=== PATIENT | male | born 1940 | race Caucasian/White ===

== ENCOUNTER 2017-03-04 10:51 | Emergency (ER) | payer MEDICARE, OTHER ==
[~2017-03-04] VITALS: Ht 165.1 cm; Wt 68.2 kg
[~2017-03-04 10:51] MED LIST: ATOR40TA28 PO; CARV12 PO; LISI40TA4 PO
[2017-03-04] MEDS ORDERED: ASPI81 PO (11:10)
[2017-03-04] MEDS ORDERED: NITR2.5 PO (11:10)
[2017-03-04] MEDS ORDERED: FURO40 PO (11:10)
[2017-03-04] MEDS ORDERED: ATOR20TA86 PO (11:10)
[2017-03-04] MEDS ORDERED: METF500T4 PO (11:10)
[2017-03-04] MEDS ORDERED: LORazepam 1 MG TABLET PO ONE (12:00)
[2017-03-04] MEDS ORDERED: PERTUSS(ACELL),DIPH,TET VAC/PF 0.5 ML VIAL IM ONE (12:00)
[2017-03-04] MEDS ORDERED: LIDOCAINE HCL BUFFERED 1% 20 ML VIAL INJ ONE ×2 (12:30→12:45)
[2017-03-04 13:52] VITALS: BP 109/70
== END 2017-03-04 14:15 | disposition home or self-care (01) ==
LOC: EMS 10:53
DX: S81.812A Laceration without foreign body, left lower leg, initial encounter (principal); I10 Essential (primary) hypertension; E11.9 Type 2 diabetes mellitus without complications; E78.00 Pure hypercholesterolemia, unspecified; F17.210 Nicotine dependence, cigarettes, uncomplicated; Z79.82 Long term (current) use of aspirin; S80.812A Abrasion, left lower leg, initial encounter; W22.8XXA Striking against or struck by other objects, initial encounter; Y93.89 Activity, other specified; Y92.89 Other specified places as the place of occurrence of the external cause; Y99.8 Other external cause status
CPT/HCPCS: 12004; 90715; 99283; J3490

== ENCOUNTER 2017-09-25 21:20 | Emergency (ER) | payer MEDICARE, OTHER ==
[~2017-09-25] VITALS: Ht 162.6 cm; Wt 70.5 kg
[~2017-09-25 21:20] MED LIST changes: +ASPI81 PO; +ATOR20TA86 PO; +FURO40 PO; +METF500T4 PO; +NITR2.5 PO
[2017-09-25] MEDS ORDERED: ISOS30TA6 PO (21:28)
[2017-09-25 21:37] LABS: GLUCOSE,POINT OF CARE 109 MG/DL (70-110)
[2017-09-25 22:47] LABS: ADD UA MICROSCOPIC YES; APPEARANCE,URINE CLOUDY (CLEAR); GLUCOSE, URINE (UA) NEGATIVE (NEGATIVE); KETONES,URINE NEGATIVE (NEGATIVE); LEUKOCYTE ESTERASE ,URINE LARGE (NEGATIVE); OCCULT BLOOD,URINE LARGE (NEGATIVE); PROTEIN,URINE POS 1+ (NEGATIVE)
[2017-09-25 22:51] LABS: RBC,URINE 51-100 /HPF (0-2); SQUAMOUS EPITHELIAL CELL,UR Few /LPF (None Seen); WBC,URINE 51-100 /HPF (0-5)
[2017-09-25] MEDS ORDERED: LEVOFLOXACIN 500 MG TABLET PO ONE (23:00)
[2017-09-25] MEDS ORDERED: PHENAZOPYRIDINE HCL 100 MG TABLET PO ONE (23:00)
[2017-09-25 23:11] VITALS: BP 113/72
== END 2017-09-25 23:15 | disposition home or self-care (01) ==
LOC: EMS 21:24
DX: N39.0 Urinary tract infection, site not specified (principal); I25.10 Atherosclerotic heart disease of native coronary artery without angina pectoris; E11.9 Type 2 diabetes mellitus without complications; E78.00 Pure hypercholesterolemia, unspecified; I10 Essential (primary) hypertension; F17.210 Nicotine dependence, cigarettes, uncomplicated; Z95.1 Presence of aortocoronary bypass graft; Z79.82 Long term (current) use of aspirin
CPT/HCPCS: 82962; 87086; 99284; 99406

== ENCOUNTER 2017-10-24 18:51 | Inpatient (IN) | payer MEDICARE, OTHER ==
[~2017-10-24] VITALS: Ht 165.1 cm; Wt 64.5 kg
[~2017-10-24 18:51] MED LIST changes: -ATOR20TA86 PO; +ISOS30TA6 PO
[2017-10-24 19:23] LABS: BASOPHILS # (AUTO) 0.06 K/uL (0.00-0.20); BASOPHILS % (AUTO) 0.6 % (0.0-2.0); EOSINOPHILS # (AUTO) 0.24 K/uL (0.00-0.70); EOSINOPHILS % (AUTO) 2.43 % (1.0-6.0); HEMATOCRIT 34.1 % (41-53); HEMOGLOBIN 11.2 g/dL (13.5-17.5); LYMPHOCYTES # (AUTO) 1.8 K/uL (1.0-4.8); MEAN CORPUSCULAR HEMOGLOBIN 31.8 pg (26.0-34.0); MEAN CORPUSCULAR HGB CONC 32.9 G/dL (31.0-37.0); MEAN CORPUSCULAR VOLUME 97 fL (80-100); MONOCYTES # (AUTO) 0.9 K/uL (0.1-1.0); MONOCYTES % (AUTO) 8.9 % (2.0-9.0); NEUTROPHILS # (AUTO) 6.9 K/uL (1.8-7.7); NEUTROPHILS % (AUTO) 70.2 % (40.0-70.0); PLATELET COUNT (AUTO) 222 K/uL (150-450); RED BLOOD CELL COUNT(AUTO) 3.53 MIL/uL (4.50-5.90); RED CELL DISTRIBUTION WIDTH 14.6 % (11.5-14.5)
[2017-10-24] MEDS ORDERED: DILTIAZEM HCL 5 MG/ML 5 ML VIAL IVP ONE (19:30)
[2017-10-24 19:35] LABS: CREATININE 1.31 mg/dL (0.60-1.30)
[2017-10-24 19:37] LABS: INR 1.1 (0.9-1.1); PROTHROMBIN TIME 11.4 SEC (9.4-11.6)
[2017-10-24] MEDS ORDERED: HEPARIN SODIUM 25000 UNITS/D5W 250 ML IV PRN (20:00)
[2017-10-24] MEDS ORDERED: HEPARIN SODIUM,PORCINE 5,000 UNITS/ML VIAL IVP PRN ×2 (20:00)
[2017-10-24] MEDS ORDERED: HEPARIN SODIUM,PORCINE 5,000 UNITS/ML VIAL IVP ONE (20:00)
[2017-10-24 20:01] LABS: ALBUMIN 3.3 g/dL (3.4-5.0); BILIRUBIN,TOTAL 0.4 mg/dL (0.1-1.0); CKMB RELATIVE INDEX 9.6 % (0.0-4.0); CREATINE KINASE MB 18.3 ng/mL (0-5)
[2017-10-24] MEDS ORDERED: ONDANSETRON HCL 4 MG/2 ML VIAL IVP PRN (20:15)
[2017-10-24] MEDS ORDERED: ACETAMINOPHEN 325 MG TABLET PO PRN (20:15)
[2017-10-24 21:26] VITALS: BP 127/88
[2017-10-25] VITALS (10 sets, daily range): BP systolic 91–127; BP diastolic 48–83
[2017-10-25] MEDS ORDERED: ONDANSETRON HCL 4 MG/2 ML VIAL IVP PRN (03:45)
[2017-10-25] MEDS ORDERED: ACETAMINOPHEN 325 MG TABLET PO PRN (03:45)
[2017-10-25] MEDS ORDERED: 0.9% SODIUM CHLORIDE 10 ML SYRINGE IVP PRN (03:45)
[2017-10-25] MEDS ORDERED: OxyCODONE HCL/ACETAMINOPHEN 5-325 MG TABLET PO PRN ×2 (03:45)
[2017-10-25] MEDS: ISOSORBIDE MONONITRATE 30 MG ER TABLET PO SCH (07:15)
[2017-10-25] MEDS: MORPHINE SULFATE 2 MG/ML SYRINGE IVP PRN (07:42)
[2017-10-25] MEDS: CARVEDILOL 12.5 MG TABLET PO SCH (08:13)
[2017-10-25] MEDS: ATORVASTATIN CALCIUM 40 MG TABLET PO SCH (08:13)
[2017-10-25] MEDS: NITROGLYCERIN 0.3 MG SUBLINGUAL TABLET #100 SL PRN (08:13)
[2017-10-25] MEDS: FUROSEMIDE 40 MG TABLET PO SCH (08:13)
[2017-10-25] MEDS: LISINOPRIL 20 MG TABLET PO SCH (08:13)
[2017-10-25] MEDS: PANTOPRAZOLE SODIUM 40 MG/VIAL IVP SCH (08:14)
[2017-10-25] MEDS: ASPIRIN 81 MG CHEWABLE TABLET PO SCH (08:14)
[2017-10-25] MEDS: DOCUSATE SODIUM 100 MG CAPSULE PO SCH ×2 (08:14→20:04)
[2017-10-25] MEDS ORDERED: METH10 PO (10:06)
[2017-10-25] MEDS: NITROGLYCERIN 2% (1 GM=INCH) PACKET TP SCH ×2 (11:33→17:39)
[2017-10-25] MEDS ORDERED: METHADONE HCL 10 MG TABLET PO ONE (14:15)
[2017-10-25] MEDS: DIAZEPAM 5 MG TABLET PO PRN (14:32)
[2017-10-25] MEDS: AMIODARONE HCL 200 MG TABLET PO SCH ×2 (14:33→20:03)
[2017-10-25] MEDS ORDERED: HEPARIN SODIUM 25000 UNITS/D5W 250 ML IV PRN (21:14)
[2017-10-25] MEDS ORDERED: HEPARIN SODIUM,PORCINE 5,000 UNITS/ML VIAL IVP PRN ×2 (21:15)
[2017-10-26] VITALS (7 sets, daily range): BP systolic 90–113; BP diastolic 42–82
[2017-10-26] MEDS: NITROGLYCERIN 2% (1 GM=INCH) PACKET TP SCH ×5 (00:20→23:27)
[2017-10-26 05:25] LABS: BASOPHILS % (AUTO) 0.4 % (0.0-2.0); EOSINOPHILS % (AUTO) 4.8 % (1.0-6.0); HEMATOCRIT 32.5 % (41-53); HEMOGLOBIN 11.1 g/dL (13.5-17.5); LYMPHOCYTES # (AUTO) 2.6 K/uL (1.0-4.8); LYMPHOCYTES % (AUTO) 27.7 % (22.0-44.0); MEAN CORPUSCULAR HEMOGLOBIN 32.9 pg (26.0-34.0); MEAN CORPUSCULAR HGB CONC 34.2 G/dL (31.0-37.0); MEAN CORPUSCULAR VOLUME 96 fL (80-100); MONOCYTES # (AUTO) 0.8 K/uL (0.1-1.0); MONOCYTES % (AUTO) 8.9 % (2.0-9.0); NEUTROPHILS # (AUTO) 5.4 K/uL (1.8-7.7); NEUTROPHILS % (AUTO) 58.2 % (40.0-70.0); PLATELET COUNT (AUTO) 174 K/uL (150-450); RED BLOOD CELL COUNT(AUTO) 3.37 MIL/uL (4.50-5.90); RED CELL DISTRIBUTION WIDTH 14.6 % (11.5-14.5)
[2017-10-26 05:28] LABS: CALCIUM, TOTAL 8.6 mg/dL (8.8-10.5); CHOL/HDL RATIO 2.1 (4.2-7.3); CREATININE 1.18 mg/dL (0.60-1.30); POTASSIUM 4.3 mmol/L (3.5-5.1); THYROID STIMULATING HORMONE 3.22 uIU/mL (0.36-3.74)
[2017-10-26] MEDS: AMIODARONE HCL 200 MG TABLET PO SCH ×2 (08:09→21:00)
[2017-10-26] MEDS: DOCUSATE SODIUM 100 MG CAPSULE PO SCH ×2 (08:10→21:00)
[2017-10-26] MEDS: ASPIRIN 81 MG CHEWABLE TABLET PO SCH (08:10)
[2017-10-26] MEDS: ISOSORBIDE MONONITRATE 30 MG ER TABLET PO SCH (08:10)
[2017-10-26] MEDS: ATORVASTATIN CALCIUM 40 MG TABLET PO SCH (08:11)
[2017-10-26] MEDS: METHADONE HCL 10 MG TABLET PO SCH (08:18)
[2017-10-26] MEDS: PANTOPRAZOLE SODIUM 40 MG/VIAL IVP SCH (08:18)
[2017-10-26] MEDS: LISINOPRIL 20 MG TABLET PO SCH (08:18)
[2017-10-26] MEDS: CARVEDILOL 12.5 MG TABLET PO SCH (08:18)
[2017-10-26] MEDS: FUROSEMIDE 40 MG TABLET PO SCH (08:18)
[2017-10-26] MEDS ORDERED: SODIUM CHLORIDE 0.9% 1,000 ML IV ONE (15:13)
[2017-10-27] VITALS (9 sets, daily range): BP systolic 88–131; BP diastolic 40–76
[2017-10-27] MEDS ORDERED: NITROGLYCERIN 0.4 MG SUBLINGUAL TABLET #25 SL ONE (01:51)
[2017-10-27] MEDS: DIAZEPAM 5 MG TABLET PO PRN ×2 (01:54→20:55)
[2017-10-27] MEDS: NITROGLYCERIN 0.3 MG SUBLINGUAL TABLET #100 SL PRN ×4 (01:57→08:17)
[2017-10-27] MEDS: NITROGLYCERIN 2% (1 GM=INCH) PACKET TP SCH ×3 (06:04→18:00)
[2017-10-27] MEDS: MORPHINE SULFATE 2 MG/ML SYRINGE IVP PRN (08:19)
[2017-10-27] MEDS: PANTOPRAZOLE SODIUM 40 MG/VIAL IVP SCH (08:43)
[2017-10-27] MEDS: AMIODARONE HCL 200 MG TABLET PO SCH ×2 (08:43→20:17)
[2017-10-27] MEDS: CARVEDILOL 12.5 MG TABLET PO SCH (08:43)
[2017-10-27] MEDS: ASPIRIN 81 MG CHEWABLE TABLET PO SCH (08:43)
[2017-10-27] MEDS: ISOSORBIDE MONONITRATE 30 MG ER TABLET PO SCH ×2 (08:46→20:12)
[2017-10-27] MEDS: ATORVASTATIN CALCIUM 40 MG TABLET PO SCH (08:46)
[2017-10-27] MEDS: METHADONE HCL 10 MG TABLET PO SCH (08:46)
[2017-10-27] MEDS: DOCUSATE SODIUM 100 MG CAPSULE PO SCH ×2 (08:46→20:12)
[2017-10-27] MEDS: FUROSEMIDE 40 MG TABLET PO SCH (08:47)
[2017-10-27] MEDS: LISINOPRIL 20 MG TABLET PO SCH (09:00)
[2017-10-27] MEDS ORDERED: APIXABAN 5 MG TABLET PO SCH (21:00)
[2017-10-28] VITALS (16 sets, daily range): BP systolic 56–141; BP diastolic 39–119
[2017-10-28] MEDS: NITROGLYCERIN 2% (1 GM=INCH) PACKET TP SCH ×4 (06:00→16:56)
[2017-10-28] MEDS: ISOSORBIDE MONONITRATE 30 MG ER TABLET PO SCH ×2 (07:51→20:07)
[2017-10-28] MEDS: ATORVASTATIN CALCIUM 40 MG TABLET PO SCH (07:51)
[2017-10-28] MEDS: DOCUSATE SODIUM 100 MG CAPSULE PO SCH ×2 (07:51→20:06)
[2017-10-28] MEDS: DIAZEPAM 5 MG TABLET PO PRN (07:52)
[2017-10-28] MEDS: METHADONE HCL 10 MG TABLET PO SCH (07:52)
[2017-10-28] MEDS: ASPIRIN 81 MG CHEWABLE TABLET PO SCH (07:52)
[2017-10-28] MEDS: PANTOPRAZOLE SODIUM 40 MG/VIAL IVP SCH (07:52)
[2017-10-28] MEDS: LISINOPRIL 20 MG TABLET PO SCH (07:59)
[2017-10-28] MEDS: AMIODARONE HCL 200 MG TABLET PO SCH ×2 (07:59→20:08)
[2017-10-28] MEDS: FUROSEMIDE 40 MG TABLET PO SCH (09:00)
[2017-10-28] MEDS: CARVEDILOL 12.5 MG TABLET PO SCH (09:00)
[2017-10-28 11:37] LABS: BASOPHILS % (AUTO) 0.4 % (0.0-2.0); EOSINOPHILS % (AUTO) 4.1 % (1.0-6.0); HEMATOCRIT 29.8 % (41-53); HEMOGLOBIN 10.3 g/dL (13.5-17.5); LYMPHOCYTES # (AUTO) 1.4 K/uL (1.0-4.8); LYMPHOCYTES % (AUTO) 16.9 % (22.0-44.0); MEAN CORPUSCULAR HEMOGLOBIN 33.2 pg (26.0-34.0); MEAN CORPUSCULAR HGB CONC 34.5 G/dL (31.0-37.0); MEAN CORPUSCULAR VOLUME 96 fL (80-100); MONOCYTES # (AUTO) 0.8 K/uL (0.1-1.0); MONOCYTES % (AUTO) 9.8 % (2.0-9.0); NEUTROPHILS # (AUTO) 5.9 K/uL (1.8-7.7); NEUTROPHILS % (AUTO) 68.8 % (40.0-70.0); PLATELET COUNT (AUTO) 163 K/uL (150-450); RED BLOOD CELL COUNT(AUTO) 3.09 MIL/uL (4.50-5.90)
[2017-10-28 11:40] LABS: CALCIUM, TOTAL 8.7 mg/dL (8.8-10.5); CREATININE 1.28 mg/dL (0.60-1.30); POTASSIUM 4.8 mmol/L (3.5-5.1)
[2017-10-28 11:43] LABS: INR 1.1 (0.9-1.1); PROTHROMBIN TIME 11.8 SEC (9.4-11.6)
[2017-10-28] MEDS ORDERED: IOHEXOL 300 MG/ML 150 ML VIAL ONE (11:59)
[2017-10-28] MEDS ORDERED: SODIUM BICARBONATE 50 MEQ/50 ML VIAL ONE (11:59)
[2017-10-28] MEDS ORDERED: HEPARIN SODIUM 1000 UNITS/NS 1,000 ML ONE (11:59)
[2017-10-28] MEDS ORDERED: IOHEXOL 300 MG/ML 100 ML VIAL ONE ×2 (11:59→14:06)
[2017-10-28] MEDS ORDERED: LIDOCAINE HCL/PF 1% 30 ML VIAL ONE (11:59)
[2017-10-28] MEDS ORDERED: FentaNYL CITRATE-PF 100 MCG/2 ML VIAL ONE (12:32)
[2017-10-28] MEDS ORDERED: MIDAZOLAM HCL 2 MG/2 ML VIAL ONE (12:33)
[2017-10-28] MEDS ORDERED: VERAPAMIL HCL 2.5 MG/ML 2 ML VIAL ONE ×2 (12:38→14:01)
[2017-10-28] MEDS ORDERED: HEPARIN SODIUM,PORCINE 1,000 UNITS/ML 10 ML VIAL ONE (12:38)
[2017-10-28] MEDS ORDERED: NITROGLYCERIN 50 MG/D5% WATER 250 ML ONE (12:39)
[2017-10-28] MEDS ORDERED: SODIUM CHLORIDE 0.9% 500 ML IV ONE ×2 (12:40→20:13)
[2017-10-28] MEDS ORDERED: LIDOCAINE 1% 30 ML/SOD BICARB 8.4% 4 ML SQ ONE (12:43)
[2017-10-28] MEDS ORDERED: HEPARIN SODIUM 2,000 UNITS in HEPARIN SODIUM 1000 UNITS/NS 1,000 ML IARTER ONE (12:45)
[2017-10-28] MEDS ORDERED: IOHEXOL 300 MG/ML 100 ML VIAL IARTER ONE (12:48)
[2017-10-28] MEDS ORDERED: IOHEXOL 300 MG/ML 150 ML VIAL IARTER ONE (12:48)
[2017-10-28] MEDS ORDERED: HEPARIN SODIUM,PORCINE 5,000 UNITS/ML VIAL IVP ONE ×2 (13:05→15:05)
[2017-10-28] MEDS ORDERED: FentaNYL CITRATE-PF 100 MCG/2 ML VIAL IVP ONE (13:05)
[2017-10-28] MEDS ORDERED: PHENYLEPHRINE HCL 10 MG/ML 5 ML VIAL ONE (13:12)
[2017-10-28] MEDS ORDERED: PHENYLEPHRINE 200 MG/D5%-WATER 250 ML IV PRN ×2 (13:15→14:15)
[2017-10-28] MEDS ORDERED: NOREPINEPHRINE 4 MG/D5%-WATER 250 ML IV PRN ×2 (13:24→13:30)
[2017-10-28] MEDS ORDERED: NITROGLYCERIN/D5W 50 MG/250 ML IV BOTTLE ICOR ONE (14:18)
[2017-10-28] MEDS ORDERED: VERAPAMIL HCL 2.5 MG/ML 2 ML VIAL ICOR ONE (14:18)
[2017-10-28] MEDS ORDERED: HEPARIN SODIUM 1000 UNITS/NS 500 ML ONE ×2 (14:22→14:34)
[2017-10-28] MEDS ORDERED: ATROPINE SULFATE 0.1 MG/ML 10 ML SYRINGE IVP ONE ×2 (15:38→15:40)
[2017-10-28] MEDS ORDERED: DOPamine HCL 400 MG/D5%-WATER 250 ML IV ONE (15:39)
[2017-10-28] MEDS: DOPamine HCL 400 MG/D5%-WATER 250 ML IV PRN (15:40)
[2017-10-28] MEDS ORDERED: HEPARIN SODIUM,PORCINE 5,000 UNITS/ML VIAL IVP PRN (16:15)
[2017-10-28 16:52] LABS: BASOPHILS % (AUTO) 0.2 % (0.0-2.0); HEMATOCRIT 33.7 % (41-53); HEMOGLOBIN 11.4 g/dL (13.5-17.5); LYMPHOCYTES # (AUTO) 1.1 K/uL (1.0-4.8); LYMPHOCYTES % (AUTO) 7.8 % (22.0-44.0); MEAN CORPUSCULAR HGB CONC 33.8 G/dL (31.0-37.0); MEAN CORPUSCULAR VOLUME 98 fL (80-100); MONOCYTES # (AUTO) 0.2 K/uL (0.1-1.0); MONOCYTES % (AUTO) 1.7 % (2.0-9.0); NEUTROPHILS # (AUTO) 12.3 K/uL (1.8-7.7); PLATELET COUNT (AUTO) 162 K/uL (150-450); RED BLOOD CELL COUNT(AUTO) 3.45 MIL/uL (4.50-5.90); RED CELL DISTRIBUTION WIDTH 15.2 % (11.5-14.5)
[2017-10-28 16:53] LABS: NEUTROPHILS % (AUTO) 89.3 % (40.0-70.0)
[2017-10-28] MEDS: HEPARIN SODIUM 25000 UNITS/D5W 250 ML IV PRN ×2 (16:58→18:50)
[2017-10-28 17:00] LABS: ABG A-A DIFF O2 517.6 mmHg (10-20.0); ABG BASE EXCESS -9.6 mmol/L (-2.0-3.0); ABG CARBOXYHEMOGLOBIN 1.8 % (0.0-1.5); ABG HCO3 17.3 mmol/L (22.0-26.0); ABG METHEMOGLOBIN 0.3 % (0.0-1.5); ABG OXYGEN CONTENT 14.5 mL/dL (15.0-23.0); ABG OXYGEN SATURATION 89.1 % (95.0-98.0); ABG OXYHEMOGLOBIN 87.2 % (94.0-100.0); ABG PCO2 34 mmHg (35-45); ABG PH 7.308 (7.35-7.450); ABG TOTAL HEMOGLOBIN 11.8 G/dL (12.0-18.0); O2 DEVICE,BLOOD GAS VENTILATOR (ROOM AIR); PEEP,BG 8 cm H2O; PO2, ARTERIAL BG 56.3 mmHg (75.0-83.0); SITE, BLOOD GAS LFT RADIAL; SOURCE, BLOOD GAS ARTERIAL; TEMPERATURE, FAHRENHEIT, BG 95.7 FAHREN (96.0-98.6); VT, ABG 550 ml
[2017-10-28 17:04] LABS: INR 1.3 (0.9-1.1); PROTHROMBIN TIME 13.7 SEC (9.4-11.6)
[2017-10-28] MEDS ORDERED: VASOPRESSIN 40 UNITS in DEXTROSE 5%-WATER 98 ML IV PRN (19:02)
[2017-10-28 19:09] LABS: ABG A-A DIFF O2 520.1 mmHg (10-20.0); ABG CARBOXYHEMOGLOBIN 1.9 % (0.0-1.5); ABG HCO3 20.6 mmol/L (22.0-26.0); ABG METHEMOGLOBIN 0.2 % (0.0-1.5); ABG OXYGEN CONTENT 15.8 mL/dL (15.0-23.0); ABG OXYHEMOGLOBIN 89.1 % (94.0-100.0); ABG PCO2 27 mmHg (35-45); ABG TOTAL HEMOGLOBIN 12.6 G/dL (12.0-18.0); PO2, ARTERIAL BG 58.5 mmHg (75.0-83.0); SOURCE, BLOOD GAS ARTERIAL; TEMPERATURE, FAHRENHEIT, BG 98.6 FAHREN (96.0-98.6)
[2017-10-28 19:10] LABS: O2 DEVICE,BLOOD GAS VENTILATOR (ROOM AIR); PEEP,BG 8 cm H2O; SITE, BLOOD GAS LFT RADIAL; VT, ABG 600 ml
[2017-10-28 19:21] LABS: ALBUMIN 3.1 g/dL (3.4-5.0); BILIRUBIN,TOTAL 1.2 mg/dL (0.1-1.0); CALCIUM, TOTAL 8.2 mg/dL (8.8-10.5); CREATININE 1.71 mg/dL (0.60-1.30); POTASSIUM 4.5 mmol/L (3.5-5.1); TOTAL PROTEIN, SERUM 6.9 g/dL (6.4-8.2)
[2017-10-28] MEDS: PROPOFOL 1000 MG/ISO-OSM 100 ML IV PRN (19:29)
[2017-10-28] MEDS: PIPERACILLIN SODIUM/TAZOBACTAM 2.25 GM in DEXTROSE 5%-WATER 50 ML IV SCH (20:06)
[2017-10-28] MEDS: HEPARIN SODIUM,PORCINE 5,000 UNITS/ML VIAL IVP PRN (23:07)
[2017-10-29] VITALS (9 sets, daily range): BP systolic 112–145; BP diastolic 48–71
[2017-10-29 00:42] LABS: GLUCOSE,POINT OF CARE 109 MG/DL (70-110)
[2017-10-29] MEDS ORDERED: DEXTROSE 50%-WATER 25 GM/50 ML SYRINGE IVP PRN (00:45)
[2017-10-29] MEDS: PIPERACILLIN SODIUM/TAZOBACTAM 2.25 GM in DEXTROSE 5%-WATER 50 ML IV SCH ×4 (01:43→19:58)
[2017-10-29] MEDS: DOPamine HCL 400 MG/D5%-WATER 250 ML IV PRN (02:02)
[2017-10-29] MEDS: NITROGLYCERIN 2% (1 GM=INCH) PACKET TP SCH ×4 (04:41→18:00)
[2017-10-29 05:32] LABS: ALBUMIN 2.6 g/dL (3.4-5.0); BILIRUBIN,TOTAL 1.1 mg/dL (0.1-1.0); CALCIUM, TOTAL 8.2 mg/dL (8.8-10.5); CREATININE 1.65 mg/dL (0.60-1.30); POTASSIUM 4.8 mmol/L (3.5-5.1); TOTAL PROTEIN, SERUM 6.2 g/dL (6.4-8.2)
[2017-10-29 06:24] LABS: BASOPHILS % (AUTO) 0.1 % (0.0-2.0); EOSINOPHILS % (AUTO) 0.4 % (1.0-6.0); HEMATOCRIT 32.3 % (41-53); LYMPHOCYTES % (AUTO) 6.9 % (22.0-44.0); MEAN CORPUSCULAR HEMOGLOBIN 32.8 pg (26.0-34.0); MEAN CORPUSCULAR HGB CONC 34.1 G/dL (31.0-37.0); MEAN CORPUSCULAR VOLUME 96 fL (80-100); MONOCYTES % (AUTO) 6.5 % (2.0-9.0); NEUTROPHILS # (AUTO) 12.8 K/uL (1.8-7.7); PLATELET COUNT (AUTO) 159 K/uL (150-450); RED BLOOD CELL COUNT(AUTO) 3.36 MIL/uL (4.50-5.90); RED CELL DISTRIBUTION WIDTH 15.3 % (11.5-14.5)
[2017-10-29 06:48] LABS: NEUTROPHILS % (AUTO) 86.1 % (40.0-70.0)
[2017-10-29] MEDS: ATORVASTATIN CALCIUM 40 MG TABLET PO SCH (09:00)
[2017-10-29] MEDS: LISINOPRIL 20 MG TABLET PO SCH (09:00)
[2017-10-29] MEDS: ISOSORBIDE MONONITRATE 30 MG ER TABLET PO SCH ×2 (09:00→20:19)
[2017-10-29] MEDS: AMIODARONE HCL 200 MG TABLET PO SCH ×2 (09:00→20:19)
[2017-10-29] MEDS: ASPIRIN 81 MG CHEWABLE TABLET PO SCH ×2 (09:00→15:46)
[2017-10-29] MEDS: FUROSEMIDE 40 MG TABLET PO SCH (09:00)
[2017-10-29] MEDS: METHADONE HCL 10 MG TABLET PO SCH (09:00)
[2017-10-29] MEDS: DOCUSATE SODIUM 100 MG CAPSULE PO SCH ×2 (09:00→20:19)
[2017-10-29] MEDS: CARVEDILOL 12.5 MG TABLET PO SCH (09:00)
[2017-10-29] MEDS: PANTOPRAZOLE SODIUM 40 MG/VIAL IVP SCH (10:21)
[2017-10-29 11:59] LABS: GLUCOSE,POINT OF CARE 127 MG/DL (70-110)
[2017-10-29] MEDS ORDERED: TICAGRELOR 90 MG TABLET PO ONE (12:00)
[2017-10-29] MEDS: PROPOFOL 1000 MG/ISO-OSM 100 ML IV PRN (12:27)
[2017-10-29 16:58] LABS: GLUCOSE,POINT OF CARE 120 MG/DL (70-110)
[2017-10-29] MEDS: HEPARIN SODIUM 25000 UNITS/D5W 250 ML IV PRN (20:17)
[2017-10-29] MEDS: TICAGRELOR 90 MG TABLET PO SCH (20:19)
[2017-10-29 21:27] LABS: GLUCOSE,POINT OF CARE 80 MG/DL (70-110)
[2017-10-29] MEDS: MORPHINE SULFATE 2 MG/ML SYRINGE IVP PRN (23:47)
[2017-10-30] VITALS (10 sets, daily range): BP systolic 101–134; BP diastolic 40–76
[2017-10-30] MEDS: INSULIN REGULAR, HUMAN 100 UNITS/ML SQ PRN ×4 (00:21→18:17)
[2017-10-30] MEDS: PROPOFOL 1000 MG/ISO-OSM 100 ML IV PRN ×3 (00:55→18:00)
[2017-10-30] MEDS: PIPERACILLIN SODIUM/TAZOBACTAM 2.25 GM in DEXTROSE 5%-WATER 50 ML IV SCH ×4 (01:15→19:38)
[2017-10-30 03:03] LABS: GLUCOSE,POINT OF CARE 80 MG/DL (70-110)
[2017-10-30] MEDS ORDERED: SODIUM CHLORIDE 0.9% 250 ML IV ONE (03:24)
[2017-10-30] MEDS: MORPHINE SULFATE 2 MG/ML SYRINGE IVP PRN ×2 (04:31→21:55)
[2017-10-30 05:25] LABS: BASOPHILS % (AUTO) 0.2 % (0.0-2.0); EOSINOPHILS % (AUTO) 0.9 % (1.0-6.0); HEMATOCRIT 28.3 % (41-53); HEMOGLOBIN 9.7 g/dL (13.5-17.5); LYMPHOCYTES % (AUTO) 8.1 % (22.0-44.0); MEAN CORPUSCULAR HEMOGLOBIN 32.7 pg (26.0-34.0); MEAN CORPUSCULAR HGB CONC 34.2 G/dL (31.0-37.0); MEAN CORPUSCULAR VOLUME 96 fL (80-100); MONOCYTES # (AUTO) 1.3 K/uL (0.1-1.0); MONOCYTES % (AUTO) 10.5 % (2.0-9.0); NEUTROPHILS # (AUTO) 10.1 K/uL (1.8-7.7); NEUTROPHILS % (AUTO) 80.3 % (40.0-70.0); PLATELET COUNT (AUTO) 119 K/uL (150-450); RED BLOOD CELL COUNT(AUTO) 2.96 MIL/uL (4.50-5.90); RED CELL DISTRIBUTION WIDTH 15.3 % (11.5-14.5)
[2017-10-30 05:28] LABS: CALCIUM, TOTAL 8.2 mg/dL (8.8-10.5); CREATININE 1.49 mg/dL (0.60-1.30); POTASSIUM 3.9 mmol/L (3.5-5.1)
[2017-10-30] MEDS: NITROGLYCERIN 2% (1 GM=INCH) PACKET TP SCH ×4 (05:50→18:00)
[2017-10-30] MEDS: HEPARIN SODIUM,PORCINE 5,000 UNITS/ML VIAL IVP PRN (06:08)
[2017-10-30 06:52] LABS: GLUCOSE,POINT OF CARE 94 MG/DL (70-110)
[2017-10-30 08:04] LABS: ABG A-A DIFF O2 226.3 mmHg (10-20.0); ABG BASE EXCESS -2.4 mmol/L (-2.0-3.0); ABG CARBOXYHEMOGLOBIN 1.5 % (0.0-1.5); ABG HCO3 23.2 mmol/L (22.0-26.0); ABG METHEMOGLOBIN 0.3 % (0.0-1.5); ABG OXYGEN SATURATION 99.4 % (95.0-98.0); ABG OXYHEMOGLOBIN 97.6 % (94.0-100.0); ABG PCO2 24 mmHg (35-45); ABG TOTAL HEMOGLOBIN 9.2 G/dL (12.0-18.0); PO2, ARTERIAL BG 175.9 mmHg (75.0-83.0); SOURCE, BLOOD GAS ARTERIAL; TEMPERATURE, FAHRENHEIT, BG 97.6 FAHREN (96.0-98.6)
[2017-10-30 08:05] LABS: O2 DEVICE,BLOOD GAS VENTILATOR (ROOM AIR); PEEP,BG 8 cm H2O; SITE, BLOOD GAS RT RADIAL; VT, ABG 500 ml
[2017-10-30] MEDS: PANTOPRAZOLE SODIUM 40 MG/VIAL IVP SCH (08:06)
[2017-10-30] MEDS: TICAGRELOR 90 MG TABLET PO SCH ×2 (08:07→20:46)
[2017-10-30] MEDS: ASPIRIN 81 MG CHEWABLE TABLET PO SCH (08:07)
[2017-10-30] MEDS: CARVEDILOL 12.5 MG TABLET PO SCH (08:08)
[2017-10-30] MEDS: ISOSORBIDE MONONITRATE 30 MG ER TABLET PO SCH ×2 (08:08→20:29)
[2017-10-30] MEDS: METHADONE HCL 10 MG TABLET PO SCH (08:08)
[2017-10-30] MEDS: DOCUSATE SODIUM 100 MG CAPSULE PO SCH ×2 (08:08→20:46)
[2017-10-30] MEDS: ATORVASTATIN CALCIUM 40 MG TABLET PO SCH (08:09)
[2017-10-30] MEDS: FUROSEMIDE 40 MG TABLET PO SCH (08:09)
[2017-10-30] MEDS: AMIODARONE HCL 200 MG TABLET PO SCH ×2 (08:09→20:29)
[2017-10-30] MEDS: LISINOPRIL 20 MG TABLET PO SCH (08:09)
[2017-10-30 12:02] LABS: GLUCOSE,POINT OF CARE 132 MG/DL (70-110)
[2017-10-30] MEDS: DOPamine HCL 400 MG/D5%-WATER 250 ML IV PRN (13:02)
[2017-10-30 18:22] LABS: GLUCOSE,POINT OF CARE 114 MG/DL (70-110)
[2017-10-31] VITALS (7 sets, daily range): BP systolic 99–141; BP diastolic 47–81
[2017-10-31] MEDS: INSULIN REGULAR, HUMAN 100 UNITS/ML SQ PRN ×3 (00:03→23:43)
[2017-10-31 01:12] LABS: GLUCOSE,POINT OF CARE 111 MG/DL (70-110)
[2017-10-31] MEDS: PIPERACILLIN SODIUM/TAZOBACTAM 2.25 GM in DEXTROSE 5%-WATER 50 ML IV SCH ×4 (01:24→20:08)
[2017-10-31] MEDS: HEPARIN SODIUM 25000 UNITS/D5W 250 ML IV PRN (01:27)
[2017-10-31] MEDS: PROPOFOL 1000 MG/ISO-OSM 100 ML IV PRN ×3 (02:35→17:59)
[2017-10-31] MEDS: NITROGLYCERIN 2% (1 GM=INCH) PACKET TP SCH ×5 (05:02→23:42)
[2017-10-31 05:21] LABS: BASOPHILS # (AUTO) 0.03 K/uL (0.00-0.20); BASOPHILS % (AUTO) 0.3 % (0.0-2.0); EOSINOPHILS # (AUTO) 0.17 K/uL (0.00-0.70); EOSINOPHILS % (AUTO) 1.73 % (1.0-6.0); HEMATOCRIT 25.8 % (41-53); HEMOGLOBIN 8.9 g/dL (13.5-17.5); MEAN CORPUSCULAR HEMOGLOBIN 32.5 pg (26.0-34.0); MEAN CORPUSCULAR HGB CONC 34.4 G/dL (31.0-37.0); MEAN CORPUSCULAR VOLUME 95 fL (80-100); MONOCYTES % (AUTO) 10.5 % (2.0-9.0); NEUTROPHILS # (AUTO) 7.5 K/uL (1.8-7.7); NEUTROPHILS % (AUTO) 77.5 % (40.0-70.0); PLATELET COUNT (AUTO) 132 K/uL (150-450); RED BLOOD CELL COUNT(AUTO) 2.73 MIL/uL (4.50-5.90); RED CELL DISTRIBUTION WIDTH 15.2 % (11.5-14.5)
[2017-10-31] MEDS: HEPARIN SODIUM,PORCINE 5,000 UNITS/ML VIAL IVP PRN (06:36)
[2017-10-31 07:36] LABS: CALCIUM, TOTAL 8.4 mg/dL (8.8-10.5); CREATININE 1.69 mg/dL (0.60-1.30); MAGNESIUM 2.6 mg/dL (1.80-2.40); POTASSIUM 3.3 mmol/L (3.5-5.1)
[2017-10-31 08:12] LABS: GLUCOSE,POINT OF CARE 94 MG/DL (70-110)
[2017-10-31] MEDS: FUROSEMIDE 40 MG TABLET PO SCH (08:24)
[2017-10-31] MEDS: ASPIRIN 81 MG CHEWABLE TABLET PO SCH (08:24)
[2017-10-31] MEDS: DOCUSATE SODIUM 100 MG CAPSULE PO SCH ×2 (08:24→20:09)
[2017-10-31] MEDS: ATORVASTATIN CALCIUM 40 MG TABLET PO SCH (08:24)
[2017-10-31] MEDS: TICAGRELOR 90 MG TABLET PO SCH ×2 (08:24→20:08)
[2017-10-31] MEDS: CARVEDILOL 12.5 MG TABLET PO SCH (08:25)
[2017-10-31] MEDS: PANTOPRAZOLE SODIUM 40 MG/VIAL IVP SCH (08:25)
[2017-10-31] MEDS: AMIODARONE HCL 200 MG TABLET PO SCH ×3 (08:26→20:53)
[2017-10-31] MEDS: METHADONE HCL 10 MG TABLET PO SCH (08:26)
[2017-10-31] MEDS: LISINOPRIL 20 MG TABLET PO SCH (08:26)
[2017-10-31] MEDS: ISOSORBIDE MONONITRATE 30 MG ER TABLET PO SCH ×3 (08:26→20:53)
[2017-10-31] MEDS ORDERED: SODIUM CHLORIDE 0.9% 500 ML IV ONE (10:04)
[2017-10-31] MEDS: DOPamine HCL 400 MG/D5%-WATER 250 ML IV PRN (10:42)
[2017-10-31 13:32] LABS: GLUCOSE,POINT OF CARE 75 MG/DL (70-110)
[2017-10-31] MEDS: POTASSIUM CHL 10 MEQ/WATER 50 ML IV SCH ×4 (16:12→17:59)
[2017-10-31] MEDS: MORPHINE SULFATE 2 MG/ML SYRINGE IVP PRN (16:16)
[2017-10-31 21:52] LABS: GLUCOSE,POINT OF CARE 106 MG/DL (70-110)
[2017-11-01] VITALS (7 sets, daily range): BP systolic 87–118; BP diastolic 49–70
[2017-11-01] MEDS: PIPERACILLIN SODIUM/TAZOBACTAM 2.25 GM in DEXTROSE 5%-WATER 50 ML IV SCH ×4 (02:27→21:15)
[2017-11-01] MEDS: PROPOFOL 1000 MG/ISO-OSM 100 ML IV PRN ×2 (02:44→08:03)
[2017-11-01] MEDS: NITROGLYCERIN 2% (1 GM=INCH) PACKET TP SCH ×2 (05:21→11:55)
[2017-11-01 05:46] LABS: HEMATOCRIT 32.2 % (41-53); HEMOGLOBIN 11.2 g/dL (13.5-17.5); MEAN CORPUSCULAR HGB CONC 34.7 G/dL (31.0-37.0); MEAN CORPUSCULAR VOLUME 95 fL (80-100); PLATELET COUNT (AUTO) 144 K/uL (150-450); RED BLOOD CELL COUNT(AUTO) 3.39 MIL/uL (4.50-5.90); RED CELL DISTRIBUTION WIDTH 14.8 % (11.5-14.5)
[2017-11-01 06:05] LABS: CALCIUM, TOTAL 8.7 mg/dL (8.8-10.5); CREATININE 1.74 mg/dL (0.60-1.30); POTASSIUM 3.7 mmol/L (3.5-5.1)
[2017-11-01] MEDS: INSULIN REGULAR, HUMAN 100 UNITS/ML SQ PRN (06:07)
[2017-11-01] MEDS: ASPIRIN 81 MG CHEWABLE TABLET PO SCH (08:00)
[2017-11-01] MEDS: TICAGRELOR 90 MG TABLET PO SCH ×2 (08:00→20:10)
[2017-11-01] MEDS: FUROSEMIDE 40 MG TABLET PO SCH (08:00)
[2017-11-01] MEDS: ATORVASTATIN CALCIUM 40 MG TABLET PO SCH (08:00)
[2017-11-01] MEDS: DOCUSATE SODIUM 100 MG CAPSULE PO SCH ×2 (08:01→21:15)
[2017-11-01] MEDS: METHADONE HCL 10 MG TABLET PO SCH (08:02)
[2017-11-01] MEDS: PANTOPRAZOLE SODIUM 40 MG/VIAL IVP SCH (08:04)
[2017-11-01] MEDS: CARVEDILOL 12.5 MG TABLET PO SCH (08:04)
[2017-11-01] MEDS: ISOSORBIDE MONONITRATE 30 MG ER TABLET PO SCH ×2 (08:04→21:00)
[2017-11-01] MEDS: AMIODARONE HCL 200 MG TABLET PO SCH ×2 (08:05→21:00)
[2017-11-01] MEDS: LISINOPRIL 20 MG TABLET PO SCH (08:05)
[2017-11-01 08:32] LABS: GLUCOSE,POINT OF CARE 90 MG/DL (70-110)
[2017-11-01 08:32] LABS: GLUCOSE,POINT OF CARE 85 MG/DL (70-110)
[2017-11-01 09:12] LABS: ABG A-A DIFF O2 84.6 mmHg (10-20.0); ABG BASE EXCESS -3.3 mmol/L (-2.0-3.0); ABG CARBOXYHEMOGLOBIN 1.4 % (0.0-1.5); ABG HCO3 22.7 mmol/L (22.0-26.0); ABG OXYGEN CONTENT 14.9 mL/dL (15.0-23.0); ABG OXYGEN SATURATION 97.7 % (95.0-98.0); ABG OXYHEMOGLOBIN 96.3 % (94.0-100.0); ABG PCO2 26 mmHg (35-45); ABG PH 7.504 (7.35-7.450); ABG TOTAL HEMOGLOBIN 10.9 G/dL (12.0-18.0); PO2, ARTERIAL BG 99.2 mmHg (75.0-83.0); SOURCE, BLOOD GAS ARTERIAL; TEMPERATURE, FAHRENHEIT, BG 97.9 FAHREN (96.0-98.6)
[2017-11-01 09:13] LABS: O2 DEVICE,BLOOD GAS VENTILATOR (ROOM AIR); PEEP,BG 5 cm H2O; SITE, BLOOD GAS RT RADIAL; VT, ABG 500 ml
[2017-11-01 09:24] LABS: BAND NEUTROPHILS % (MANUAL) 5 % (1-5); EOSINOPHILS % (MANUAL) 2 % (1-6); LYMPHOCYTES % (MANUAL) 15 % (22-44); MONOCYTES % (MANUAL) 7 % (2-9); SEGMENTED NEUTROPHILS % 71 % (40-70)
[2017-11-01] MEDS: MORPHINE SULFATE 2 MG/ML SYRINGE IVP PRN (10:58)
[2017-11-01] MEDS: MAGNESIUM HYDROXIDE SUSPENSION 30 ML UDCUP PO PRN (13:06)
[2017-11-01] MEDS: DOPamine HCL 400 MG/D5%-WATER 250 ML IV PRN (15:36)
[2017-11-01 17:27] LABS: ABG A-A DIFF O2 99.1 mmHg (10-20.0); ABG BASE EXCESS -1.4 mmol/L (-2.0-3.0); ABG CARBOXYHEMOGLOBIN 1.7 % (0.0-1.5); ABG HCO3 23.8 mmol/L (22.0-26.0); ABG METHEMOGLOBIN 0.2 % (0.0-1.5); ABG OXYGEN CONTENT 15.3 mL/dL (15.0-23.0); ABG OXYGEN SATURATION 95.4 % (95.0-98.0); ABG OXYHEMOGLOBIN 93.6 % (94.0-100.0); ABG PCO2 32 mmHg (35-45); ABG PH 7.465 (7.35-7.450); ABG TOTAL HEMOGLOBIN 11.6 G/dL (12.0-18.0); O2 DEVICE,BLOOD GAS VENTILATOR (ROOM AIR); PO2, ARTERIAL BG 77.7 mmHg (75.0-83.0); PRESSURE SUPPORT, BG 8 cm H2O; SITE, BLOOD GAS RT RADIAL; SOURCE, BLOOD GAS ARTERIAL; TEMPERATURE, FAHRENHEIT, BG 98.2 FAHREN (96.0-98.6); VENT MODE, BG CPAP (ROOM AIR)
[2017-11-01 18:22] LABS: GLUCOSE,POINT OF CARE 64 MG/DL (70-110)
[2017-11-01 18:22] LABS: GLUCOSE,POINT OF CARE 242 MG/DL (70-110)
[2017-11-01 20:07] LABS: GLUCOSE,POINT OF CARE 77 MG/DL (70-110)
[2017-11-02] VITALS: BP 102/58
[2017-11-02] MEDS: PIPERACILLIN SODIUM/TAZOBACTAM 2.25 GM in DEXTROSE 5%-WATER 50 ML IV SCH ×4 (02:21→20:08)
[2017-11-02 04:00] VITALS: BP 112/66
[2017-11-02 06:08] LABS: GLUCOSE,POINT OF CARE 111 MG/DL (70-110)
[2017-11-02 06:08] LABS: GLUCOSE,POINT OF CARE 163 MG/DL (70-110)
[2017-11-02 08:00] VITALS: BP 124/66
[2017-11-02] MEDS: METHADONE HCL 10 MG TABLET PO SCH (08:53)
[2017-11-02] MEDS: ATORVASTATIN CALCIUM 40 MG TABLET PO SCH (08:53)
[2017-11-02] MEDS: AMIODARONE HCL 200 MG TABLET PO SCH ×2 (08:53→20:05)
[2017-11-02] MEDS: ASPIRIN 81 MG CHEWABLE TABLET PO SCH (08:53)
[2017-11-02] MEDS: PANTOPRAZOLE SODIUM 40 MG/VIAL IVP SCH (08:53)
[2017-11-02] MEDS: CARVEDILOL 12.5 MG TABLET PO SCH (08:54)
[2017-11-02] MEDS: FUROSEMIDE 40 MG TABLET PO SCH (08:54)
[2017-11-02] MEDS: ISOSORBIDE MONONITRATE 30 MG ER TABLET PO SCH ×3 (08:54→20:28)
[2017-11-02] MEDS: TICAGRELOR 90 MG TABLET PO SCH ×2 (08:54→20:06)
[2017-11-02] MEDS: DOCUSATE SODIUM 100 MG CAPSULE PO SCH ×2 (08:54→20:05)
[2017-11-02] MEDS: LISINOPRIL 20 MG TABLET PO SCH (08:55)
[2017-11-02 12:00] VITALS: BP 110/67
[2017-11-02 14:37] LABS: GLUCOSE,POINT OF CARE 118 MG/DL (70-110)
[2017-11-02 16:00] VITALS: BP 101/62
[2017-11-02 18:13] LABS: GLUCOSE,POINT OF CARE 126 MG/DL (70-110)
[2017-11-02 20:00] VITALS: BP 102/40
[2017-11-02] MEDS: MAGNESIUM HYDROXIDE SUSPENSION 30 ML UDCUP PO PRN (20:06)
[2017-11-03] VITALS: BP 128/75
[2017-11-03] MEDS: DIAZEPAM 5 MG TABLET PO PRN ×2 (00:07→20:02)
[2017-11-03] MEDS: PIPERACILLIN SODIUM/TAZOBACTAM 2.25 GM in DEXTROSE 5%-WATER 50 ML IV SCH ×4 (02:02→21:03)
[2017-11-03 04:00] VITALS: BP 117/71
[2017-11-03 05:57] LABS: GLUCOSE,POINT OF CARE 104 MG/DL (70-110)
[2017-11-03] MEDS: PANTOPRAZOLE SODIUM 40 MG/VIAL IVP SCH (08:54)
[2017-11-03] MEDS: TICAGRELOR 90 MG TABLET PO SCH ×2 (08:54→19:56)
[2017-11-03] MEDS: METHADONE HCL 10 MG TABLET PO SCH (08:54)
[2017-11-03] MEDS: AMIODARONE HCL 200 MG TABLET PO SCH ×2 (08:54→19:56)
[2017-11-03] MEDS: DOCUSATE SODIUM 100 MG CAPSULE PO SCH ×2 (08:55→19:56)
[2017-11-03] MEDS: ASPIRIN 81 MG CHEWABLE TABLET PO SCH (08:55)
[2017-11-03] MEDS: CARVEDILOL 12.5 MG TABLET PO SCH (08:55)
[2017-11-03] MEDS: ATORVASTATIN CALCIUM 40 MG TABLET PO SCH (09:07)
[2017-11-03] MEDS: FUROSEMIDE 40 MG TABLET PO SCH (09:07)
[2017-11-03] MEDS: LISINOPRIL 20 MG TABLET PO SCH (09:07)
[2017-11-03] MEDS: INSULIN REGULAR, HUMAN 100 UNITS/ML SQ PRN (11:46)
[2017-11-03 12:18] LABS: GLUCOSE,POINT OF CARE 148 MG/DL (70-110)
[2017-11-03 12:47] VITALS: BP 122/45
[2017-11-03] MEDS ORDERED: SODIUM CHLORIDE 0.9% 250 ML IV ONE (14:39)
[2017-11-03 15:15] VITALS: BP 116/78
[2017-11-03 19:47] VITALS: BP 118/69
[2017-11-03] MEDS: ISOSORBIDE MONONITRATE 30 MG ER TABLET PO SCH (19:56)
[2017-11-03] MEDS ORDERED: TEMAZEPAM 15 MG CAPSULE PO PRN (20:30)
[2017-11-04] VITALS: BP 122/65
[2017-11-04] MEDS: PIPERACILLIN SODIUM/TAZOBACTAM 2.25 GM in DEXTROSE 5%-WATER 50 ML IV SCH (04:22)
[2017-11-04 04:30] VITALS: BP 118/64
[2017-11-04 05:28] LABS: GLUCOMETER DEV NAME(LOC) 5N 1M; GLUCOSE,POINT OF CARE 109 MG/DL (70-110)
[2017-11-04 07:35] VITALS: BP 117/65
[2017-11-04] MEDS: ISOSORBIDE MONONITRATE 30 MG ER TABLET PO SCH (08:06)
[2017-11-04] MEDS: AMIODARONE HCL 200 MG TABLET PO SCH (08:06)
[2017-11-04] MEDS: PANTOPRAZOLE SODIUM 40 MG/VIAL IVP SCH (08:06)
[2017-11-04] MEDS: ASPIRIN 81 MG CHEWABLE TABLET PO SCH (08:06)
[2017-11-04] MEDS: FUROSEMIDE 40 MG TABLET PO SCH (08:06)
[2017-11-04] MEDS: CARVEDILOL 12.5 MG TABLET PO SCH (08:07)
[2017-11-04] MEDS: TICAGRELOR 90 MG TABLET PO SCH (08:07)
[2017-11-04] MEDS: ATORVASTATIN CALCIUM 40 MG TABLET PO SCH (08:07)
[2017-11-04] MEDS: METHADONE HCL 10 MG TABLET PO SCH (08:07)
[2017-11-04] MEDS: DOCUSATE SODIUM 100 MG CAPSULE PO SCH (08:18)
[2017-11-04] MEDS ORDERED: TICA90TA PO (10:44)
[2017-11-04] MEDS ORDERED: ISOS30TA6 PO (10:44)
[2017-11-04 11:12] VITALS: BP 123/49
[2017-11-04 11:59] LABS: GLUCOMETER DEV NAME(LOC) 5N 2R; GLUCOSE,POINT OF CARE 83 MG/DL (70-110)
[2017-11-04 11:59] LABS: GLUCOMETER DEV NAME(LOC) 5N 2R; GLUCOSE,POINT OF CARE 110 MG/DL (70-110)
== END 2017-11-04 12:00 | disposition home health service (06) | DRG 270 ==
LOC: EMS 18:57 → ICU 20:28 → 5S 10-26 19:10 → ICU 10-28 15:00 → 5S 11-03 12:15
PROVIDERS: ADMIT Internal Medicine; ATTEND Internal Medicine
PROC: 5A1955Z Respiratory Ventilation, Greater than 96 Consecutive Hours (ICD-10-PCS; principal; 2017-10-28)
PROC: 0BH17EZ Insertion of Endotracheal Airway into Trachea, Via Natural or Artificial Opening (ICD-10-PCS; 2017-10-28)
PROC: 027034Z Dilation of Coronary Artery, One Artery with Drug-eluting Intraluminal Device, Percutaneous Approach (ICD-10-PCS; 2017-10-28)
PROC: 4A023N7 Measurement of Cardiac Sampling and Pressure, Left Heart, Percutaneous Approach (ICD-10-PCS; 2017-10-28)
PROC: B211YZZ Fluoroscopy of Multiple Coronary Arteries using Other Contrast (ICD-10-PCS; 2017-10-28)
PROC: 5A02210 Assistance with Cardiac Output using Balloon Pump, Continuous (ICD-10-PCS; 2017-10-28)
DX: I21.4 Non-ST elevation (NSTEMI) myocardial infarction (principal); J96.01 Acute respiratory failure with hypoxia; K72.00 Acute and subacute hepatic failure without coma; R57.0 Cardiogenic shock; I13.0 Hypertensive heart and chronic kidney disease with heart failure and stage 1 through stage 4 chronic kidney disease, or unspecified chronic kidney disease; N17.9 Acute kidney failure, unspecified; I50.23 Acute on chronic systolic (congestive) heart failure; I48.0 Paroxysmal atrial fibrillation; E44.0 Moderate protein-calorie malnutrition; E11.22 Type 2 diabetes mellitus with diabetic chronic kidney disease; I11.0 Hypertensive heart disease with heart failure; N18.3 Chronic kidney disease, stage 3 (moderate); J44.9 Chronic obstructive pulmonary disease, unspecified; I25.5 Ischemic cardiomyopathy; I25.2 Old myocardial infarction; I25.119 Atherosclerotic heart disease of native coronary artery with unspecified angina pectoris; E78.5 Hyperlipidemia, unspecified; Z79.899 Other long term (current) drug therapy; Z87.891 Personal history of nicotine dependence; Z95.1 Presence of aortocoronary bypass graft; Z98.61 Coronary angioplasty status; Z79.82 Long term (current) use of aspirin
CPT/HCPCS: 33967; 76000; 82805; 82962; 83605; 83615; 83735; 84443; 85007; 87040; 87070; 87081; 87205; 87804; 92610; 92920; 92928; 93005; 93306; 94002; 94003; 94640; 96374; 96375; 97116; 97162; 97163; 97166; 97530; 97535; 99283; 99285; 99291; C9113; J0461; J1265; J1644; J1940; J2250; J2270; J2370; J2543; J2704; J3010; J3370; J3480; J3490; J7030; J7040; J7050; J7060; Q9967

== ENCOUNTER 2017-11-07 07:43 | Inpatient (IN) | payer MEDICARE, OTHER ==
[~2017-11-07] VITALS: Ht 162.6 cm; Wt 64.6 kg
[~2017-11-07 07:43] MED LIST changes: -METF500T4 PO; +METH10 PO; +TICA90TA PO
[2017-11-07] MEDS ORDERED: SPIR25 PO (07:51)
[2017-11-07] MEDS ORDERED: BLOOD PRESSURE PO (07:51)
[2017-11-07] MEDS ORDERED: METF500T4 PO (07:51)
[2017-11-07 08:45] LABS: BASOPHILS # (AUTO) 0.01 K/uL (0.00-0.20); BASOPHILS % (AUTO) 0.1 % (0.0-2.0); EOSINOPHILS # (AUTO) 0.02 K/uL (0.00-0.70); EOSINOPHILS % (AUTO) 0.22 % (1.0-6.0); HEMATOCRIT 29.4 % (41-53); HEMOGLOBIN 9.8 g/dL (13.5-17.5); LYMPHOCYTES # (AUTO) 0.4 K/uL (1.0-4.8); LYMPHOCYTES % (AUTO) 3.9 % (22.0-44.0); MEAN CORPUSCULAR HEMOGLOBIN 32.1 pg (26.0-34.0); MEAN CORPUSCULAR HGB CONC 33.5 G/dL (31.0-37.0); MEAN CORPUSCULAR VOLUME 96 fL (80-100); MONOCYTES # (AUTO) 0.5 K/uL (0.1-1.0); MONOCYTES % (AUTO) 4.4 % (2.0-9.0); NEUTROPHILS # (AUTO) 10.1 K/uL (1.8-7.7); PLATELET COUNT (AUTO) 246 K/uL (150-450); RED BLOOD CELL COUNT(AUTO) 3.06 MIL/uL (4.50-5.90); RED CELL DISTRIBUTION WIDTH 15.4 % (11.5-14.5)
[2017-11-07 08:47] LABS: NEUTROPHILS % (AUTO) 91.3 % (40.0-70.0)
[2017-11-07 08:55] LABS: ANION GAP 8 mmol/L (8-16); CALCIUM, TOTAL 8.6 mg/dL (8.8-10.5); CARBON DIOXIDE 23 mmol/L (22-29); CHLORIDE 101 mmol/L (98-107); CREATININE 1.81 mg/dL (0.60-1.30); GLOMERULAR FILTR. RATE CALC 37 mL/min (>60); POTASSIUM 4.9 mmol/L (3.5-5.1); SODIUM SERUM 132 mmol/L (136-145); UREA NITROGEN, BLOOD 38 mg/dL (7-18)
[2017-11-07 09:01] LABS: ALANINE AMINOTRANSFERASE 31 U/L (12-78); ASPARTATE AMINOTRANSFERASE 40 U/L (15-37); BILIRUBIN,TOTAL 1.1 mg/dL (0.1-1.0); CREATINE KINASE, TOTAL 75 U/L (39-308); TOTAL PROTEIN, SERUM 7.2 g/dL (6.4-8.2)
[2017-11-07 09:05] LABS: INFLUENZA TYPE B NEGATIVE FOR TYPE B (NEGATIVE)
[2017-11-07] MEDS ORDERED: 0.9% SODIUM CHLORIDE 10 ML SYRINGE IVP PRN (09:30)
[2017-11-07] MEDS ORDERED: ONDANSETRON HCL 4 MG/2 ML VIAL IVP PRN (09:30)
[2017-11-07] MEDS ORDERED: ACETAMINOPHEN 325 MG TABLET PO PRN ×2 (09:30→10:30)
[2017-11-07] MEDS ORDERED: PIPERACILLIN/TAZO 3.375 GM/D5W 50 ML IV ONE (10:15)
[2017-11-07] MEDS ORDERED: VANCOMYCIN HCL 1.25 GM in DEXTROSE 5%-WATER 250 ML IV ONE (10:15)
[2017-11-07] MEDS ORDERED: OxyCODONE HCL/ACETAMINOPHEN 5-325 MG TABLET PO PRN (10:30)
[2017-11-07] MEDS ORDERED: INSULIN ASPART 100 UNITS/ML SQ PRN (10:30)
[2017-11-07] MEDS ORDERED: ALBUTEROL SULFATE 2.5 MG/0.5 ML NEB SOLUTION NEB PRN (10:30)
[2017-11-07] MEDS ORDERED: BISACODYL 10 MG RECTAL RECTAL SUPPOSITORY PR PRN (10:30)
[2017-11-07] MEDS ORDERED: DEXTROSE 50%-WATER 25 GM/50 ML SYRINGE IVP PRN (10:30)
[2017-11-07] MEDS ORDERED: SODIUM CHLORIDE 0.9% 250 ML IV ONE (10:58)
[2017-11-07] MEDS ORDERED: LORazepam 1 MG TABLET PO PRN (11:00)
[2017-11-07] MEDS: FUROSEMIDE 40 MG/4 ML VIAL IVP SCH ×2 (11:12→21:07)
[2017-11-07] MEDS: ASPIRIN 81 MG CHEWABLE TABLET PO SCH (11:13)
[2017-11-07 11:20] VITALS: BP 105/54
[2017-11-07 12:02] LABS: GLUCOSE,POINT OF CARE 136 MG/DL (70-110)
[2017-11-07] MEDS ORDERED: CARV25 PO (13:18)
[2017-11-07] MEDS ORDERED: LISI-662 PO (13:18)
[2017-11-07 14:52] LABS: GLUCOSE,POINT OF CARE 127 MG/DL (70-110)
[2017-11-07 16:26] VITALS: BP 86/50
[2017-11-07] MEDS ORDERED: PNEUMOCOCCAL VACCINE POLYVALENT 0.5 ML VIAL [PPSV23] IM ONE (16:45)
[2017-11-07] MEDS ORDERED: INFLUENZA VIRUS VACCINE QVS 2017-18 (3YR+)/PF 60 MCG/0.5 ML SYRINGE IM ONE (16:45)
[2017-11-07 20:30] VITALS: BP 113/73
[2017-11-07] MEDS: TICAGRELOR 90 MG TABLET PO SCH (21:06)
[2017-11-07] MEDS: CARVEDILOL 12.5 MG TABLET PO SCH (21:06)
[2017-11-07] MEDS: ATORVASTATIN CALCIUM 40 MG TABLET PO SCH (21:06)
[2017-11-07] MEDS: DOCUSATE SODIUM 100 MG CAPSULE PO SCH (21:06)
[2017-11-07] MEDS: HEPARIN SODIUM,PORCINE 5,000 UNITS/ML VIAL SQ SCH (21:07)
[2017-11-07 23:45] VITALS: BP 100/62
[2017-11-08] MEDS ORDERED: 0.9% SODIUM CHLORIDE 5 ML NEB SOLUTION NEB ONE ×2 (00:44→07:53)
[2017-11-08 04:46] VITALS: BP 103/66
[2017-11-08 07:13] VITALS: BP 102/59
[2017-11-08 07:40] LABS: BASOPHILS # (AUTO) 0.03 K/uL (0.00-0.20); BASOPHILS % (AUTO) 0.3 % (0.0-2.0); EOSINOPHILS # (AUTO) 0.02 K/uL (0.00-0.70); EOSINOPHILS % (AUTO) 0.17 % (1.0-6.0); HEMATOCRIT 28.4 % (41-53); HEMOGLOBIN 9.5 g/dL (13.5-17.5); LYMPHOCYTES # (AUTO) 0.8 K/uL (1.0-4.8); MEAN CORPUSCULAR HEMOGLOBIN 32.2 pg (26.0-34.0); MEAN CORPUSCULAR HGB CONC 33.3 G/dL (31.0-37.0); MEAN CORPUSCULAR VOLUME 97 fL (80-100); MONOCYTES # (AUTO) 0.5 K/uL (0.1-1.0); MONOCYTES % (AUTO) 4.9 % (2.0-9.0); NEUTROPHILS # (AUTO) 8.3 K/uL (1.8-7.7); PLATELET COUNT (AUTO) 249 K/uL (150-450); RED BLOOD CELL COUNT(AUTO) 2.94 MIL/uL (4.50-5.90); RED CELL DISTRIBUTION WIDTH 15.7 % (11.5-14.5); WHITE BLOOD COUNT (AUTO) 9.6 K/uL (4.5-11.0)
[2017-11-08 07:47] LABS: NEUTROPHILS % (AUTO) 86.7 % (40.0-70.0)
[2017-11-08 08:05] LABS: ALBUMIN 2.6 g/dL (3.4-5.0); BILIRUBIN,TOTAL 0.7 mg/dL (0.1-1.0); CALCIUM, TOTAL 7.9 mg/dL (8.8-10.5); CREATININE 1.7 mg/dL (0.60-1.30); MAGNESIUM 2.3 mg/dL (1.80-2.40); POTASSIUM 3.6 mmol/L (3.5-5.1); TOTAL PROTEIN, SERUM 6.1 g/dL (6.4-8.2)
[2017-11-08] MEDS: FUROSEMIDE 40 MG/4 ML VIAL IVP SCH ×3 (08:55→20:59)
[2017-11-08] MEDS: TICAGRELOR 90 MG TABLET PO SCH ×2 (08:55→20:51)
[2017-11-08] MEDS: LEVOFLOXACIN 250 MG TABLET PO SCH (08:55)
[2017-11-08] MEDS: PANTOPRAZOLE SODIUM 40 MG DR TABLET PO SCH (08:56)
[2017-11-08] MEDS: ASPIRIN 81 MG CHEWABLE TABLET PO SCH (08:56)
[2017-11-08] MEDS: DOCUSATE SODIUM 100 MG CAPSULE PO SCH ×3 (08:57→21:00)
[2017-11-08] MEDS: CARVEDILOL 12.5 MG TABLET PO SCH ×2 (08:57→20:51)
[2017-11-08] MEDS: HEPARIN SODIUM,PORCINE 5,000 UNITS/ML VIAL SQ SCH (09:00)
[2017-11-08] MEDS: OXYGEN THERAPY IH SCH (10:18)
[2017-11-08] MEDS: LISINOPRIL 5 MG TABLET PO SCH (11:15)
[2017-11-08 11:33] VITALS: BP 102/69
[2017-11-08] MEDS: METHADONE HCL 10 MG TABLET PO SCH (11:56)
[2017-11-08] MEDS: APIXABAN 2.5 MG TABLET PO SCH ×2 (15:42→20:51)
[2017-11-08 16:16] VITALS: BP 114/53
[2017-11-08 19:27] VITALS: BP 106/64
[2017-11-08] MEDS: ATORVASTATIN CALCIUM 40 MG TABLET PO SCH (20:51)
[2017-11-08 23:40] VITALS: BP 91/58
[2017-11-09 04:46] VITALS: BP 100/61
[2017-11-09 06:34] LABS: BASOPHILS # (AUTO) 0.01 K/uL (0.00-0.20); BASOPHILS % (AUTO) 0.2 % (0.0-2.0); EOSINOPHILS # (AUTO) 0.03 K/uL (0.00-0.70); EOSINOPHILS % (AUTO) 0.38 % (1.0-6.0); HEMATOCRIT 28.6 % (41-53); HEMOGLOBIN 9.6 g/dL (13.5-17.5); LYMPHOCYTES # (AUTO) 0.5 K/uL (1.0-4.8); LYMPHOCYTES % (AUTO) 7.2 % (22.0-44.0); MEAN CORPUSCULAR HEMOGLOBIN 31.8 pg (26.0-34.0); MEAN CORPUSCULAR HGB CONC 33.6 G/dL (31.0-37.0); MEAN CORPUSCULAR VOLUME 95 fL (80-100); MONOCYTES # (AUTO) 0.4 K/uL (0.1-1.0); MONOCYTES % (AUTO) 5.1 % (2.0-9.0); NEUTROPHILS # (AUTO) 6.3 K/uL (1.8-7.7); PLATELET COUNT (AUTO) 243 K/uL (150-450); RED BLOOD CELL COUNT(AUTO) 3.02 MIL/uL (4.50-5.90); RED CELL DISTRIBUTION WIDTH 14.7 % (11.5-14.5); WHITE BLOOD COUNT (AUTO) 7.3 K/uL (4.5-11.0)
[2017-11-09 06:50] LABS: ALBUMIN 2.3 g/dL (3.4-5.0); BILIRUBIN,TOTAL 0.7 mg/dL (0.1-1.0); CALCIUM, TOTAL 8.1 mg/dL (8.8-10.5); CREATININE 1.51 mg/dL (0.60-1.30); MAGNESIUM 2.2 mg/dL (1.80-2.40); TOTAL PROTEIN, SERUM 6.2 g/dL (6.4-8.2)
[2017-11-09 07:21] LABS: NEUTROPHILS % (AUTO) 87.2 % (40.0-70.0)
[2017-11-09 08:27] VITALS: BP 90/59
[2017-11-09] MEDS: OXYGEN THERAPY IH SCH ×2 (09:00→21:09)
[2017-11-09] MEDS: ASPIRIN 81 MG CHEWABLE TABLET PO SCH (09:00)
[2017-11-09] MEDS: DOCUSATE SODIUM 100 MG CAPSULE PO SCH ×2 (09:00→21:00)
[2017-11-09] MEDS: FUROSEMIDE 40 MG/4 ML VIAL IVP SCH ×2 (09:00→21:01)
[2017-11-09] MEDS: TICAGRELOR 90 MG TABLET PO SCH ×2 (09:00→21:01)
[2017-11-09] MEDS: LISINOPRIL 5 MG TABLET PO SCH (09:00)
[2017-11-09] MEDS: APIXABAN 2.5 MG TABLET PO SCH ×3 (09:00→21:02)
[2017-11-09] MEDS: CARVEDILOL 12.5 MG TABLET PO SCH ×2 (09:01→21:02)
[2017-11-09] MEDS: LEVOFLOXACIN 250 MG TABLET PO SCH (09:01)
[2017-11-09] MEDS: METHADONE HCL 10 MG TABLET PO SCH (09:02)
[2017-11-09] MEDS: PANTOPRAZOLE SODIUM 40 MG DR TABLET PO SCH (09:02)
[2017-11-09 11:59] VITALS: BP 90/53
[2017-11-09 13:52] LABS: GLUCOSE,POINT OF CARE 97 MG/DL (70-110)
[2017-11-09 13:53] LABS: GLUCOSE,POINT OF CARE 114 MG/DL (70-110)
[2017-11-09 13:53] LABS: GLUCOSE COMMENT 1 Juice/Food/D50 Given; GLUCOSE,POINT OF CARE 122 MG/DL (70-110)
[2017-11-09 13:53] LABS: GLUCOSE COMMENT 1 Juice/Food/D50 Given; GLUCOSE,POINT OF CARE 69 MG/DL (70-110)
[2017-11-09 13:54] LABS: GLUCOSE,POINT OF CARE 84 MG/DL (70-110)
[2017-11-09 16:28] VITALS: BP 90/61
[2017-11-09 19:41] VITALS: BP 101/62
[2017-11-09] MEDS: ATORVASTATIN CALCIUM 40 MG TABLET PO SCH (21:01)
[2017-11-09 23:54] VITALS: BP 94/50
[2017-11-10 04:52] VITALS: BP 101/55
[2017-11-10 07:27] LABS: EOSINOPHILS % (AUTO) 0 % (1.0-6.0); HEMATOCRIT 29.2 % (41-53); HEMOGLOBIN 10.1 g/dL (13.5-17.5); LYMPHOCYTES # (AUTO) 0.4 K/uL (1.0-4.8); LYMPHOCYTES % (AUTO) 5.9 % (22.0-44.0); MEAN CORPUSCULAR HEMOGLOBIN 32.7 pg (26.0-34.0); MEAN CORPUSCULAR HGB CONC 34.4 G/dL (31.0-37.0); MEAN CORPUSCULAR VOLUME 95 fL (80-100); MONOCYTES # (AUTO) 0.4 K/uL (0.1-1.0); MONOCYTES % (AUTO) 6.4 % (2.0-9.0); PLATELET COUNT (AUTO) 248 K/uL (150-450); RED BLOOD CELL COUNT(AUTO) 3.07 MIL/uL (4.50-5.90); RED CELL DISTRIBUTION WIDTH 15.2 % (11.5-14.5); WHITE BLOOD COUNT (AUTO) 6.8 K/uL (4.5-11.0)
[2017-11-10 07:49] VITALS: BP 96/61
[2017-11-10 08:08] LABS: ALBUMIN 2.4 g/dL (3.4-5.0); BILIRUBIN,TOTAL 1.1 mg/dL (0.1-1.0); CALCIUM, TOTAL 8.1 mg/dL (8.8-10.5); CREATININE 1.46 mg/dL (0.60-1.30); POTASSIUM 3.5 mmol/L (3.5-5.1); TOTAL PROTEIN, SERUM 6.5 g/dL (6.4-8.2)
[2017-11-10 08:18] LABS: NEUTROPHILS % (AUTO) 87.7 % (40.0-70.0)
[2017-11-10] MEDS: TICAGRELOR 90 MG TABLET PO SCH (08:49)
[2017-11-10] MEDS: METHADONE HCL 10 MG TABLET PO SCH (08:49)
[2017-11-10] MEDS: LEVOFLOXACIN 250 MG TABLET PO SCH (08:49)
[2017-11-10] MEDS: PANTOPRAZOLE SODIUM 40 MG DR TABLET PO SCH ×3 (08:49→09:02)
[2017-11-10] MEDS: LISINOPRIL 5 MG TABLET PO SCH (08:49)
[2017-11-10] MEDS: CARVEDILOL 12.5 MG TABLET PO SCH (08:49)
[2017-11-10] MEDS: DOCUSATE SODIUM 100 MG CAPSULE PO SCH ×2 (08:49→09:01)
[2017-11-10] MEDS: FUROSEMIDE 40 MG/4 ML VIAL IVP SCH ×2 (08:50→09:01)
[2017-11-10] MEDS: APIXABAN 2.5 MG TABLET PO SCH (09:00)
[2017-11-10 12:13] VITALS: BP 80/46
[2017-11-10 13:00] VITALS: BP 98/53
[2017-11-10] MEDS ORDERED: FUROSEMIDE 40 MG TABLET PO SCH (13:45)
[2017-11-10 14:00] VITALS: BP 126/66
[2017-11-10 15:30] VITALS: BP 115/62
[2017-11-11 06:18] LABS: GLUCOSE,POINT OF CARE 95 MG/DL (70-110)
[2017-11-11 06:18] LABS: GLUCOSE,POINT OF CARE 87 MG/DL (70-110)
[2017-11-11 06:18] LABS: GLUCOSE,POINT OF CARE 100 MG/DL (70-110)
[2017-11-11] MEDS ORDERED: LEVOFLOXACIN 250 MG TABLET PO SCH (09:00)
[2017-11-12 19:33] LABS: GLUCOSE COMMENT 1 Juice/Food/D50 Given; GLUCOSE,POINT OF CARE 81 MG/DL (70-110)
[2017-11-12 19:34] LABS: GLUCOSE COMMENT 1 Juice/Food/D50 Given; GLUCOSE,POINT OF CARE 64 MG/DL (70-110)
[2017-11-12 19:34] LABS: GLUCOSE,POINT OF CARE 97 MG/DL (70-110)
[2017-11-12 19:34] LABS: GLUCOSE,POINT OF CARE 193 MG/DL (70-110)
[2017-11-12 19:34] LABS: GLUCOSE,POINT OF CARE 97 MG/DL (70-110)
[2017-11-12 19:35] LABS: GLUCOSE,POINT OF CARE 105 MG/DL (70-110)
[2017-11-12 19:35] LABS: GLUCOSE,POINT OF CARE 121 MG/DL (70-110)
[2017-11-12 19:35] LABS: GLUCOSE,POINT OF CARE 71 MG/DL (70-110)
== END 2017-11-10 18:45 | disposition left against medical advice (07) | DRG 291 ==
LOC: EMS 07:45 → 5S 09:48
PROVIDERS: ADMIT Internal Medicine; ATTEND Internal Medicine
DX: I11.0 Hypertensive heart disease with heart failure (principal); E43 Unspecified severe protein-calorie malnutrition; J18.9 Pneumonia, unspecified organism; N17.9 Acute kidney failure, unspecified; E11.9 Type 2 diabetes mellitus without complications; I48.0 Paroxysmal atrial fibrillation; Z95.1 Presence of aortocoronary bypass graft; J44.0 Chronic obstructive pulmonary disease with (acute) lower respiratory infection; I50.23 Acute on chronic systolic (congestive) heart failure; Y95 Nosocomial condition; I25.5 Ischemic cardiomyopathy; I25.10 Atherosclerotic heart disease of native coronary artery without angina pectoris; E78.5 Hyperlipidemia, unspecified; E78.00 Pure hypercholesterolemia, unspecified; F41.9 Anxiety disorder, unspecified; Z53.21 Procedure and treatment not carried out due to patient leaving prior to being seen by health care provider; F17.210 Nicotine dependence, cigarettes, uncomplicated; I25.2 Old myocardial infarction; Z79.02 Long term (current) use of antithrombotics/antiplatelets; Z79.82 Long term (current) use of aspirin; Z95.5 Presence of coronary angioplasty implant and graft; Z79.899 Other long term (current) drug therapy; Z68.24 Body mass index [BMI] 24.0-24.9, adult
CPT/HCPCS: 82962; 83605; 83735; 87040; 87081; 87804; 93005; 93306; 94640; 97162; 97166; 97530; 99285; J1644; J1940; J2543; J3370; J7050; J7060

== ENCOUNTER 2017-11-11 03:14 | Emergency (ER) | payer MEDICARE, OTHER ==
[~2017-11-11] VITALS: Ht 165.1 cm; Wt 72.7 kg
[~2017-11-11 03:14] MED LIST changes: +BLOOD PRESSURE PO; -CARV12 PO; +CARV25 PO; +LISI-662 PO; -LISI40TA4 PO; +METF500T4 PO; +SPIR25 PO; -TICA90TA PO
[2017-11-11 04:02] LABS: GLUCOSE,POINT OF CARE 108 MG/DL (70-110)
[2017-11-11 04:50] VITALS: BP 102/49
== END 2017-11-11 05:43 | disposition left against medical advice (07) ==
LOC: EMS 03:15
DX: R06.00 Dyspnea, unspecified (principal); I25.5 Ischemic cardiomyopathy; I11.0 Hypertensive heart disease with heart failure; I50.9 Heart failure, unspecified; I25.10 Atherosclerotic heart disease of native coronary artery without angina pectoris; E11.9 Type 2 diabetes mellitus without complications; E78.00 Pure hypercholesterolemia, unspecified; I25.2 Old myocardial infarction; Z95.1 Presence of aortocoronary bypass graft; Z00.00 Encounter for general adult medical examination without abnormal findings; Z79.82 Long term (current) use of aspirin
CPT/HCPCS: 82962; 99283